=== PATIENT | male | born 1975 | race African-American/Black ===

== ENCOUNTER 2022-04-22 19:15 | Emergency (ER) | payer OTHER ==
[2022-04-22 19:26] VITALS: BP 142/91; PULSE 90; RESP 18; TEMP 98.2; BMI 38.0
[2022-04-22] MEDS ORDERED: CEPHALEXIN MONOHYDRATE 500 MG CAPSULE (UD) PO ONE (22:40)
[2022-04-22] MEDS ORDERED: CEPHALEXIN MONOHYDRATE 500 MG CAPSULE (UD) ONE (22:46)
== END 2022-04-22 23:03 | disposition home or self-care (01) ==
LOC: JERFT 19:15
PROC: 0H9GXZZ Drainage of Left Hand Skin, External Approach (ICD-10-PCS; principal; 2022-04-22)
DX: L03.012 Cellulitis of left finger (principal)
CPT/HCPCS: 99283-25